=== PATIENT | female | born 1980 | race Caucasian/White ===

== ENCOUNTER 2018-02-16 21:03 | Emergency (ER) | payer BC ==
[2018-02-16 21:03] VITALS: BMI 36.1
[2018-02-16 21:41] VITALS: O2SAT 100
--- NOTE | 2018-02-16 22:05 | ED PDOC ---
HPI: Female Pain Time Seen by Provider: 02/16/18 21:28 Chief Complaint (Nursing): Female Genitourinary Chief Complaint (Provider): : pain, bleeding History Per: Patient History/Exam Limitations: no limitations Onset/Duration Of Symptoms: Days (2) Current Symptoms Are (Timing): Still Present Quality Of Discomfort: Cramping Additional Complaint(s): 37 y/o female presents for evaluation of vaginal spotting x 2 days. Associated cramping. Patient states she had u/s yesterday which did not show any acute findings, and then today saw her Healthcare Translator in his office and was told cervix was closed. Patient states pain intensified as of one hour ago, and was advised to come to ED when she contacted her Healthcare Translator. Denies fever, nausea/vomiting, chest pain, shortness of breath, palpitations, changes in bowel movements, urinary symptoms. Healthcare Translator: Dr. Luis France Abnormal Vaginal Bleeding: Yes : 3 Para: 1 Miscarriage: 1 Past Medical History Reviewed: Historical Data, Nursing Documentation, Vital Signs Vital Signs: Last Vital Signs Temp 98.6 F 02/16/18 21:37 Pulse 67 02/16/18 21:37 Resp 18 02/16/18 21:37 BP 118/67 02/16/18 21:37 Pulse Ox 100 02/16/18 21:37 - Medical History PMH: No Chronic Diseases - Surgical History Surgical History: No Surg Hx - Family History Family History: States: Unknown Family Hx - Home Medications Home Medications: Ambulatory Orders Medication Instructions Recorded No Known Home Med 02/24/15 - Allergies Allergies/Adverse Reactions: Allergies Allergy/AdvReac Type Severity Reaction Status Date / Time No Known Allergies Allergy Verified 02/16/18 21:37 Review of Systems ROS Statement: Except As Marked, All Systems Reviewed And Found Negative Genitourinary Female: Positive for: Vaginal Bleeding, Pelvic Pain Physical Exam - Reviewed Nursing Documentation Reviewed: Yes Vital Signs Reviewed: Yes - Physical Exam Appears: Positive for: Well, Non-toxic, Uncomfortable Head Exam: Positive for: ATRAUMATIC, NORMAL INSPECTION, NORMOCEPHALIC Skin: Positive for: Normal Color Eye Exam: Positive for: Normal appearance ENT: Positive for: Normal ENT Inspection Cardiovascular/Chest: Positive for: Regular Rate, Rhythm Respiratory: Positive for: Normal Breath Sounds Gastrointestinal/Abdominal: Positive for: Normal Exam Extremity: Positive for: Normal ROM Neurologic/Psych: Positive for: Alert, Oriented (x3) - Laboratory Results Result Diagrams: 02/16/18 22:20 02/16/18 22:20 - ECG O2 Sat by Pulse Oximetry: 100 - Progress ED Course And Treament: labs, tv u/s, tylenol PO Addendum created by Lucie Fernandez MD on 02/17/2018 1:39 AM Eastern Time ([place] & [place]) THIS REPORT CONTAINS FINDINGS THAT MAY BE CRITICAL TO PATIENT CARE. The findings were verbally communicated via telephone conference with Marly Harman PA-C at 1 :38 AM EDT on 02/17/2018. The findings were acknowledged and understood. Initial Report created on 02/17/2018 1:33 AM Eastern Time ([place] & [place]) EXAM: US , Transvaginal CLINICAL HISTORY: 37 years old, female; Pain and signs and symptoms; Lmp or gestational age (in weeks): 12/15/17; Antepartum complications; Bleeding; Other: Cramping; ; Additional info: ; Pain, bleeding TECHNIQUE: Real-time transvaginal obstetrical ultrasound of the maternal pelvis and a first trimester with image documentation. Transvaginal imaging was used for better evaluation of the fetus and adnexa. COMPARISON: No relevant prior studies available. FINDINGS: Gestation: Gestational sac identified within the lower uterine segment, measuring 23 mm. [place] rump length measures 12 mm, corresponding to 7 weeks, 3 days. No cardiac activity is identified. Uterus/cervix: Uterus is unremarkable. Endometrial stripe measures 9mm. The cervix appears closed, measuring 2.8 cm. No myometrial mass. Ovaries: The right ovary measures 2.2 x 1.4 x 1.9 cm. Doppler evaluation reveals vascular flow. A right ovarian cyst is seen, measuring 1.3 x 0.9 x 1.1 cm. Normal blood flow. The left ovary is not visualized. Free fluid: No free fluid. IMPRESSION: Gestational sac identified within the lower uterine segment with [place] rump length of 12 mm with no cardiac activity. Findings compatible with failure. After returning from ultrasound notified by patient that she passed sac. Intact gestational sac/cord noted on towel; specimen sent to lab for path eval Patient states pain now resolved Attempted pelvic exam but patient refusing exam due to localized discomfort with speculum insertion. 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 France; who states if patient feeling better can follow up on Tuesday for repeat beta Patient educated on findings, discharged with instructions to follow up Tuesday as scheduled. Advised tylenol/ibuprofen PRN pain Return precautions given Patient demonstrates full understanding of discharge instructions Patient requires no further intervention in the ED and is stable for discharge at this time Disposition - Clinical Impression Clinical Impression: Spontaneous - Patient ED Disposition Is Patient to be Admitted: No Counseled Patient/Family Regarding: Studies Performed, Diagnosis, Need For Followup - Disposition Disposition: Routine/Home Disposition Time: 01:40 Condition: IMPROVED Instructions: Miscarriage Forms: [facility] (Greenlandic) Print Language: FILIPINO
[2018-02-16 22:43] LABS: BASO % 0.3 % (0.0-2.0); EOS # 0.1 K/uL (0.0-0.7); EOS % 1.1 % (0.0-4.0); HEMOGLOBIN 13.3 g/dL (12.0-16.0); LYMPH % 7.6 % (20.0-40.0); MEAN CELL VOLUME 94.4 fl (81.0-99.0); MEAN CORPUSCULAR HEMOGLOBIN 31.3 pg (27.0-31.0); MEAN CORPUSCULAR HGB CONC 33.1 g/dL (33.0-37.0); MEAN PLATELET VOLUME 8.3 fl (7.2-11.7); MONO # 0.8 K/uL (0.0-0.8); MONO % 6.1 % (0.0-10.0); NEUT # 10.7 K/uL (1.8-7.0); NEUT % 84.9 % (50.0-75.0); NRBC % 0.1 % (0.0-0.0); PLATELET COUNT 272 K/uL (130-400); RBC 4.26 Mil/uL (3.80-5.20); RED CELL DISTRIBUTION WIDTH 13.7 % (11.5-14.5); WHITE BLOOD COUNT 12.7 K/uL (4.8-10.8)
[2018-02-16 22:51] LABS: ALB/GLOB RATIO 1.1 (1.0-2.1); ALBUMIN 3.8 g/dL (3.5-5.0); ALT/SGPT 33 U/L (9-52); AST/SGOT 27 U/L (14-36); BLOOD UREA NITROGEN 18 mg/dl (7-17); CALCIUM 9.3 mg/dL (8.4-10.2); GFR NON-AFRICAN AMERICAN > 60
[2018-02-16 23:24] LABS: BANDS 5 % (0-2); EOSINOPHIL 2 % (0-7); LYMPHOCYTE 10 % (20-50); MONOCYTE 6 % (0-10); NEUTROPHIL 77 % (42-75); PLATELET ESTIMATE NORMAL (NORMAL); TOTAL CELLS COUNTED 100
[2018-02-17 03:43] VITALS: BP 122/66; PULSE 71; RESP 16; TEMP 98.3
--- NOTE | 2018-02-17 10:52 | US ---
Date of service: 02/16/2018 PROCEDURE: First trimester ultrasound HISTORY: ; pain, bleeding Beta HCG results: Pending.. COMPARISON: None available. TECHNIQUE: Standard protocol for this study/examination. FINDINGS: LMP: 12/15/2017 Prior examinations from the current : None TECHNIQUE: Real-time 2D imaging, duplex and color Doppler. FINDINGS: No cardiac activity documented. Measurements: [place] rump length: 1.23 cm Gestational age based on CRL 7 weeks 3 days Gestational age 6 weeks 6 days based on gestational sac measurement 2.32 cm Gestational age derived from LMP: 9 weeks. LUCILA based on LMP: 09/21/2018 LUCILA based on biometry: 10/04/2018 Gestational concordance documented Yolk sac not identified Cervix: No Cervical abnormalities: Negative examination for cervical dilatation or effacement. Closed cervix measuring 2.80 cm Subchorionic hemorrhage: None UTERUS: 4.4 x 6 x 8.9 cm. ADNEXA: Right: 1.4 x 1.9 x 2.2 cm. Simple cyst 9 x 11 x 13 mm normal Doppler arterial waveform documented. Left: Not visible Fluid in the cul-de-sac: None IMPRESSION: Absence of cardiac activity suggest intrauterine demise. Unremarkable right adnexa. Limitations of the current examination: Nonvisualization left adnexa. Concordant results (preliminary interpretation) provided by [facility]. Procedure Completed: 22:51 Preliminary ([facility]) Report: Dictated and Authenticated: 01:33. Final Interpretation: 10:50.
== END 2018-02-17 01:51 | disposition home or self-care (01) ==
LOC: H.ER 21:03
DX: O03.9 Complete or unspecified spontaneous abortion without complication (principal); Z3A.01 Less than 8 weeks gestation of pregnancy

== ENCOUNTER 2018-02-17 09:26 | Observation (INO) | payer BC ==
[2018-02-17 09:26] VITALS: BMI 36.1
--- NOTE | 2018-02-17 10:02 | ED PDOC ---
HPI: Abdomen Time Seen by Provider: 02/17/18 09:32 Chief Complaint (Nursing): Abdominal Pain Chief Complaint (Provider): Abdominal Pain History Per: Patient History/Exam Limitations: no limitations Onset/Duration Of Symptoms: Days Additional Complaint(s): 37 years old female presents to the ED for evaluation of persistent abdominal pain. Patient reports she was here yesterday and was diagnosed with spontaneous . She states she was evaluated by her OB-MOISTURE TESTER and dx with retained POCs. Patient reports pain started today and took three Motrin tablets. She denies any other medical complaints. PMD: Bryan Mustafa : 3 Para: 1 Miscarriage: 1 Past Medical History Reviewed: Historical Data, Nursing Documentation, Vital Signs Vital Signs: Last Vital Signs Temp 98.2 F 02/17/18 12:28 Pulse 49 L 02/17/18 12:28 Resp 16 02/17/18 12:28 BP 106/64 02/17/18 12:28 Pulse Ox 100 02/17/18 12:28 - Medical History PMH: No Chronic Diseases - Surgical History Surgical History: No Surg Hx - Family History Family History: States: Unknown Family Hx - Social History Current smoker - smoking cessation education provided: No Alcohol: None Drugs: Denies - Immunization History Hx Tetanus Toxoid Vaccination: No Hx Influenza Vaccination: No Hx Pneumococcal Vaccination: No - Home Medications Home Medications: Ambulatory Orders Medication Instructions Recorded No Known Home Med 02/24/15 - Allergies Allergies/Adverse Reactions: Allergies Allergy/AdvReac Type Severity Reaction Status Date / Time No Known Allergies Allergy Verified 02/17/18 09:34 Review of Systems ROS Statement: Except As Marked, All Systems Reviewed And Found Negative Gastrointestinal: Positive for: Abdominal Pain Physical Exam - Reviewed Nursing Documentation Reviewed: Yes Vital Signs Reviewed: Yes - Physical Exam Appears: Positive for: Non-toxic, No Acute Distress Head Exam: Positive for: ATRAUMATIC, NORMOCEPHALIC Skin: Positive for: Normal Color, Warm, Dry Cardiovascular/Chest: Positive for: Regular Rate, Rhythm. Negative for: Murmur Respiratory: Positive for: Normal Breath Sounds. Negative for: Respiratory Distress Gastrointestinal/Abdominal: Positive for: Tenderness (lower abdomen). Negative for: Guarding, Rebound Extremity: Positive for: Normal ROM. Negative for: Pedal Edema Neurologic/Psych: Positive for: Alert, Oriented (x3) - Laboratory Results Result Diagrams: 02/17/18 10:00 02/17/18 11:15 - ECG O2 Sat by Pulse Oximetry: 97 (RA) Pulse Ox Interpretation: Normal Medical Decision Making Medical Decision Making: Time: 933 Initial Plan: --Type and screen --Beta HCG --CMP --EKG --CBC --PTT --PT --Morphine 2 mg IV ----- Scribe Attestation: Documented by Candace Ríos, acting as a scribe for April Johnson MD. Provider Scribe Attestation: All medical record entries made by the Scribe were at my direction and personally dictated by me. I have reviewed the chart and agree that the record accurately reflects my personal performance of the history, physical exam, medical decision making, and the department course for this patient. I have also personally directed, reviewed, and agree with the discharge instructions and disposition. Disposition - Clinical Impression Clinical Impression: Retained products of conception - Patient ED Disposition Is Patient to be Admitted: Yes - Disposition Disposition Time: 10:30 Condition: STABLE - Pt Status Changed To: Hospital Disposition Of: Observation - POA Present On Arrival: None
[2018-02-17 10:16] LABS: BASO % 0.5 % (0.0-2.0); EOS # 0.2 K/uL (0.0-0.7); EOS % 2.2 % (0.0-4.0); HEMOGLOBIN 13.4 g/dL (12.0-16.0); LYMPH # 1.2 K/uL (1.0-4.3); LYMPH % 14.1 % (20.0-40.0); MEAN CELL VOLUME 93.8 fl (81.0-99.0); MEAN CORPUSCULAR HEMOGLOBIN 31.6 pg (27.0-31.0); MEAN CORPUSCULAR HGB CONC 33.7 g/dL (33.0-37.0); MEAN PLATELET VOLUME 8.5 fl (7.2-11.7); MONO # 0.7 K/uL (0.0-0.8); MONO % 8.4 % (0.0-10.0); NEUT # 6.2 K/uL (1.8-7.0); NEUT % 74.8 % (50.0-75.0); RBC 4.23 Mil/uL (3.80-5.20); RED CELL DISTRIBUTION WIDTH 13.8 % (11.5-14.5); WHITE BLOOD COUNT 8.2 K/uL (4.8-10.8)
[2018-02-17 10:33] LABS: INR 0.9; PROTHROMBIN TIME 10.4 Seconds (9.8-13.1)
[2018-02-17 10:35] LABS: PARTIAL THROMBOPLASTIN TIME 32.3 Seconds (25.6-37.1)
[2018-02-17 11:40] LABS: ALB/GLOB RATIO 1.2 (1.0-2.1); ALBUMIN 3.7 g/dL (3.5-5.0); ALT/SGPT 36 U/L (9-52); AST/SGOT 28 U/L (14-36); BLOOD UREA NITROGEN 14 mg/dl (7-17); GFR NON-AFRICAN AMERICAN > 60
[2018-02-17] MEDS ORDERED: Midazolam 2 MG/2 ML VIAL ONE (12:27)
[2018-02-17] MEDS ORDERED: Propofol 10 mg/ml Inj (20 ML) ONE (12:27)
[2018-02-17] MEDS ORDERED: cefOXitin IV 1 gm in Dextrose 2 GM/100 ML BAG IVPB ONE (12:30)
[2018-02-17] MEDS ORDERED: Ferric Subsulfate Sol(60 mL) ONE (12:30)
[2018-02-17] MEDS ORDERED: OXYTOCIN/0.9 % NS 20 UNIT/1,000 ML BAG IV ONE (12:30)
[2018-02-17] MEDS ORDERED: Oxytocin 10 Units/ml Inj ONE (12:30)
[2018-02-17] MEDS ORDERED: Lactated Ringer's 1,000 ML IV ONE ×2 (12:45)
[2018-02-17] MEDS ORDERED: Dexamethasone 4 mg/1 ml ONE (12:52)
[2018-02-17] MEDS ORDERED: Oxycodone/Acetaminophen 5/325 mg Tab PO PRN (13:12)
[2018-02-17] MEDS ORDERED: Dexamethasone 4 mg/1 ml IVP PRN (13:27)
[2018-02-17] MEDS ORDERED: Lactated Ringer's 1,000 ML IV SCH (13:30)
[2018-02-17] MEDS ORDERED: OXYTOCIN/0.9 % NS 20 UNIT/1,000 ML BAG IV SCH (13:30)
[2018-02-17 14:56] VITALS: RESP 18
[2018-02-17 16:49] VITALS: O2SAT 97
--- NOTE | 2018-02-17 17:20 | CP.SDSHP ---
Same Day Surgery H & P - Allergies Allergies: Allergies No Known Allergies Allergy (Verified 02/17/18 09:34) - Physical Exam Vital Signs: Vital Signs 02/17/18 02/17/18 02/17/18 09:30 09:34 11:30 Temperature 98.5 F Pulse Rate 60 58 L Respiratory 18 Rate Blood Pressure 109/72 O2 Sat by Pulse 100 98 Oximetry 02/17/18 02/17/18 02/17/18 12:13 12:26 12:28 Temperature 98 F 98 F 98.2 F Pulse Rate 49 L 49 L 49 L Respiratory 16 16 16 Rate Blood Pressure 106/64 106/64 106/64 O2 Sat by Pulse 100 100 Oximetry 02/17/18 02/17/18 02/17/18 13:15 13:30 13:37 Temperature 98.1 F 97.9 F Pulse Rate 59 L 61 Respiratory 19 19 Rate Blood Pressure 92/65 L 113/73 O2 Sat by Pulse 99 99 97 Oximetry 02/17/18 02/17/18 02/17/18 13:45 14:00 14:15 Temperature 98.0 F 98.3 F 97.9 F Pulse Rate 56 L 56 L 54 L Respiratory 19 19 19 Rate Blood Pressure 107/57 L 98/63 L 100/51 L O2 Sat by Pulse 96 96 96 Oximetry 02/17/18 02/17/18 02/17/18 14:30 14:45 14:55 Temperature 97.6 F 98.6 F Pulse Rate 57 L 55 L 59 L Respiratory 18 18 18 Rate Blood Pressure 98/56 L 104/59 L 96/50 L O2 Sat by Pulse 96 96 97 Oximetry 02/17/18 02/17/18 15:51 16:48 Temperature 98.6 F 98.4 F Pulse Rate 58 L 75 Respiratory 18 18 Rate Blood Pressure 99/56 L 96/55 L O2 Sat by Pulse 96 97 Oximetry Short Stay Discharge - Short Stay Discharge Admitting Diagnosis/Reason for Visit: RETAINED POC Follow-up: 1 wk in office Additional Instructions (Diet, Activity): pelvic and bed rest Continue PNC vit Progress Note/Discharge Note with Instructions: tolerated procedure well, no complications Pt recovered well and discussed findings in PACU unit Discharge home this pm and will follow up office 1 wk Instructions given and rx for pain given (Percocet 5/325 1 po q 4 hrs prn for pain)
[2018-02-17 18:12] VITALS: BP 99/67; PULSE 65; TEMP 98
--- NOTE | 2018-02-19 00:05 | OP ---
PROCEDURE DATE: 02/17/2018 PREOPERATIVE DIAGNOSIS: Incomplete . POSTOPERATIVE DIAGNOSIS: Incomplete . PROCEDURE PERFORMED: Suction, evacuation and curettage. SURGEON: Bryan Mustafa MD DRAINS USED: None. REPLACEMENT USED: None. ANESTHESIA USED: General. ANESTHESIOLOGIST: FINDINGS: 1. Cervix appears open to 1 cm posterior, bleeding per os. 2. No adnexal masses to palpation bilaterally. 3. Uterus anteverted, mobile about 30 weeks' size, mobile. 4. Evacuation of large amount of tissue using ovarian forceps was performed. 5. Suction and curettage was then performed using a #7 plastic cannula, moderate amount of tissue obtained and sent to pathology. DESCRIPTION OF PROCEDURE: The patient was taken to the operating room and placed on the operating table in a supine position. Following induction of general anesthesia, the patient was then replaced in a dorsal lithotomy position. Perineal and genital areas were draped and prepped in a usual sterile manner. At this time, we then proceeded to place a sterile catheter into the bladder and clear fluid was then evacuated from the bladder. The patient was then examined under anesthesia with some of the above findings. A heavy weighted speculum was then placed in the posterior wall of the vagina exposing the cervix. The anterior lip of the cervix was then grasped using a ring forceps and retracted superiorly. At this time, using an ovarian forceps, endometrial cavity was then probed and evacuated of some necrotic-appearing tissue. Following this, we then proceeded to place a #7 plastic cannula and suction curettage was then performed. Moderate amount of tissue obtained. Following suction curettage, the endometrial cavity was gingerly curetted using sharp curettage, minimal amount of tissue obtained. Uterus was massaged, contracted well. The patient tolerated the procedure well. There were no complications and she was transferred to the recovery room in satisfactory condition. Sponge and pads count correct x 3. Bryan Mustafa MD KATHY
== END 2018-02-17 18:40 | disposition home or self-care (01) ==
LOC: H.ER 09:26 → H.ERHOLD 10:30
PROVIDERS: ADMIT Specialist; ATTEND Specialist
DX: O03.4 Incomplete spontaneous abortion without complication (principal)
CPT/HCPCS: 59812; 80053; 85025; 85610; 85730; 86850; 86900; 88305; 99284; G0378; J0694; J1100; J1885; J2001; J2250; J2270; J2405; J2590; J2704; J3010; J7120